=== PATIENT | female | born 1990 | race Hispanic/Latino ===

== ENCOUNTER 2017-12-02 18:51 | Observation (INO) | payer OTHER ==
[~2017-12-02] VITALS: Ht 160 cm; Wt 91.6 kg
[2017-12-02 20:12] LABS: APPEARANCE,URINE Clear (CLEAR); BILIRUBIN,URINE Negative (NEGATIVE); COLOR,URINE Yellow (YELLOW); GLUCOSE, URINE (UA) Negative (NEGATIVE); KETONES,URINE Negative (NEGATIVE); LEUKOCYTE ESTERASE ,URINE Trace (NEGATIVE); NITRATE,URINE Negative (NEGATIVE); OCCULT BLOOD,URINE Moderate (NEGATIVE); PROTEIN,URINE Negative (NEGATIVE)
[2017-12-02 20:20] LABS: RBC,URINE 0-1 /HPF (0-1)
[2017-12-02 20:21] LABS: BACTERIA,URINE Few /HPF (None Seen); MUCUS,URINE Few LPF (None Seen); SQUAMOUS EPITHELIAL CELL,UR Moderate /LPF (0-2)
== END 2017-12-02 20:40 | disposition home or self-care (01) ==
LOC: EDH 18:51 → LDH 19:01
PROVIDERS: ADMIT Obstetrics & Gynecology; ATTEND Obstetrics & Gynecology
DX: O26.853 Spotting complicating pregnancy, third trimester (principal); O26.893 Other specified pregnancy related conditions, third trimester; R10.30 Lower abdominal pain, unspecified; M54.5 Low back pain; Z3A.37 37 weeks gestation of pregnancy
CPT/HCPCS: 81001; 99285; G0378 ×2

== ENCOUNTER 2017-12-07 03:40 | Inpatient (IN) | payer OTHER ==
[~2017-12-07] VITALS: Ht 160 cm; Wt 91.6 kg
[2017-12-07] MEDS ORDERED: LACTATED RINGERS 1000ML 1,000 ML IV SCH (04:00)
[2017-12-07] MEDS ORDERED: LACTATED RINGERS 1000ML 1,000 ML IV PRN (04:24)
[2017-12-07] MEDS ORDERED: PREN-196 PO (04:28)
[2017-12-07 04:29] VITALS: BP 137/71
[2017-12-07] MEDS ORDERED: LACTATED RINGERS 500 ML 500 ML IV PRN (04:30)
[2017-12-07] MEDS ORDERED: EPHEDRINE SULFATE 50 MG/ML AMPULE IVP PRN (04:30)
[2017-12-07] MEDS ORDERED: ROPIVACAINE 0.2%200ML EPIDURAL 200 ML EP SCH (04:30)
[2017-12-07] MEDS ORDERED: NALOXONE HCL 0.4 MG/1 ML ML IV PRN (04:30)
[2017-12-07 04:32] LABS: MEAN CORPUSCULAR HEMOGLOBIN 29.2 pg (27.0-33.0); MEAN CORPUSCULAR HGB CONC 34.3 g/dL (32.0-36.0); MEAN CORPUSCULAR VOLUME 85.2 fL (79-99); NUCLEATED RED BLOOD CELLS 0.1 % (0.0-0.19); PLATELET COUNT (AUTO) 237 K/uL (130-400); RED BLOOD CELL COUNT(AUTO) 3.99 MIL/uL (4.00-5.50); RED CELL DISTRIBUTION WIDTH 14.9 % (11.0-15.5); WHITE BLOOD COUNT (AUTO) 11.3 K/uL (4.8-10.8)
[2017-12-07 04:38] LABS: APPEARANCE,URINE Cloudy (CLEAR); BILIRUBIN,URINE Negative (NEGATIVE); COLOR,URINE Yellow (YELLOW); GLUCOSE, URINE (UA) Negative (NEGATIVE); KETONES,URINE Trace mg/dL (NEGATIVE); LEUKOCYTE ESTERASE ,URINE Moderate (NEGATIVE); NITRATE,URINE Negative (NEGATIVE); OCCULT BLOOD,URINE Trace (NEGATIVE); PH,URINE 6.5 (5.0-8.0); PROTEIN,URINE Negative (NEGATIVE)
[2017-12-07 04:45] LABS: BACTERIA,URINE Many /HPF (None Seen); SQUAMOUS EPITHELIAL CELL,UR 30-50 /LPF (0-2)
[2017-12-07] MEDS ORDERED: OXYTOCIN 10 USP UNITS/ML ONE ×2 (06:50→10:30)
[2017-12-07] MEDS ORDERED: LACTATED RINGERS 1000ML 1,000 ML IV ONE (06:50)
[2017-12-07] MEDS ORDERED: IBUPROFEN 800 MG TAB ONE (08:35)
[2017-12-07] MEDS ORDERED: OXYTOCIN-LR 20 UNITS/1000 ML 1,000 ML IV SCH (08:45)
[2017-12-07] MEDS ORDERED: MEASLES/MUMPS/RUBELLA VACCINE, LIVE 0.5 ML/VIAL SQ PRN (08:45)
[2017-12-07] MEDS ORDERED: DIPH,PERTUSS(ACELL),TET VAC/PF 0.5 ML VIAL IM PRN (08:45)
[2017-12-07] MEDS ORDERED: WITCH HAZEL 1 PAD TP PRN (08:45)
[2017-12-07] MEDS ORDERED: BENZOCAINE/LANOLIN/ALOE VERA 60 ML AEROSOL TP PRN (08:45)
[2017-12-07] MEDS ORDERED: LANOLIN 30GM OINTMENT TP PRN (08:45)
[2017-12-07] MEDS: DOCUSATE SODIUM 100 MG CAP PO SCH ×2 (10:36→21:31)
[2017-12-07 11:05] VITALS: BP 128/74
[2017-12-07] MEDS: ACETAMINOPHEN 325 MG TAB PO PRN ×2 (13:20→23:46)
[2017-12-07 15:37] VITALS: BP 127/72
[2017-12-07] MEDS: IBUPROFEN 800 MG TAB PO PRN (16:49)
[2017-12-07] MEDS: FLU VACC QS2017-18 36MOS UP/PF 60 MCG/0.5 ML ML IM SCH (16:57)
[2017-12-07] MEDS ORDERED: ACETAMINOPHEN-CODEINE 300/30MG TAB PO PRN (17:00)
[2017-12-07] MEDS: ACETAMINOPHEN-CODEINE 300/30MG TAB PO PRN (18:40)
[2017-12-07 19:22] VITALS: BP 123/64
[2017-12-07 23:09] VITALS: BP 127/85
[2017-12-08 03:23] VITALS: BP 129/83
[2017-12-08] MEDS: IBUPROFEN 800 MG TAB PO PRN ×2 (03:38→15:20)
[2017-12-08] MEDS: FLU VACC QS2017-18 36MOS UP/PF 60 MCG/0.5 ML ML IM SCH (06:00)
[2017-12-08 06:04] LABS: HEMATOCRIT 29.1 % (36-48); MEAN CORPUSCULAR HEMOGLOBIN 30.1 pg (27.0-33.0); MEAN CORPUSCULAR VOLUME 86.2 fL (79-99); PLATELET COUNT (AUTO) 193 K/uL (130-400); RED BLOOD CELL COUNT(AUTO) 3.38 MIL/uL (4.00-5.50); RED CELL DISTRIBUTION WIDTH 15.3 % (11.0-15.5); WHITE BLOOD COUNT (AUTO) 7.9 K/uL (4.8-10.8)
[2017-12-08 07:35] VITALS: BP 123/77
[2017-12-08] MEDS: DOCUSATE SODIUM 100 MG CAP PO SCH (08:14)
[2017-12-08] MEDS: ACETAMINOPHEN-CODEINE 300/30MG TAB PO PRN (08:15)
[2017-12-08 08:25] LABS: HEPATITIS Bs ANTIGEN SCREEN P Negative (Negative)
[2017-12-08 11:20] VITALS: BP 128/76
[2017-12-08 16:00] VITALS: BP 124/80
== END 2017-12-08 16:20 | disposition home or self-care (01) | DRG 775 ==
LOC: EDH 03:40 → LDH 03:41 → OBSVTOIN 04:24 → WSH 11:05
PROVIDERS: ADMIT Obstetrics & Gynecology; ATTEND Obstetrics & Gynecology
PROC: 10E0XZZ Delivery of Products of Conception, External Approach (ICD-10-PCS; principal; 2017-12-07)
PROC: 10907ZC Drainage of Amniotic Fluid, Therapeutic from Products of Conception, Via Natural or Artificial Opening (ICD-10-PCS; 2017-12-07)
PROC: 00HU33Z Insertion of Infusion Device into Spinal Canal, Percutaneous Approach (ICD-10-PCS; 2017-12-07)
PROC: 3E0R3BZ Introduction of Anesthetic Agent into Spinal Canal, Percutaneous Approach (ICD-10-PCS; 2017-12-07)
PROC: 3E0234Z Introduction of Serum, Toxoid and Vaccine into Muscle, Percutaneous Approach (ICD-10-PCS; 2017-12-07)
DX: O69.81X0 Labor and delivery complicated by cord around neck, without compression, not applicable or unspecified (principal); E66.01 Morbid (severe) obesity due to excess calories; O43.123 Velamentous insertion of umbilical cord, third trimester; O99.214 Obesity complicating childbirth; Z23 Encounter for immunization; Z37.0 Single live birth; Z3A.38 38 weeks gestation of pregnancy; Z68.35 Body mass index [BMI] 35.0-35.9, adult
CPT/HCPCS: 36415; 81001; 85027; 86592; 86850; 86900; 86901; 87340; 90715; A4314; G0008; J2590; J7120; Q2038